=== PATIENT | female | born 1970 | race African-American/Black ===

== ENCOUNTER 2019-03-16 17:27 | Inpatient (IN) ==
[2019-03-16 18:04] LABS: BASO# 0.02 X1000 (0.0-0.2); BASO% 0.3 % (0.0-0.8); EOS# 0.07 X1000 (0.0-0.7); EOS% 0.9 % (0.0-10.0); HEMATOCRIT 39.2 % (37.0-47.0); HEMOGLOBIN 12.8 g/dL (12.0-16.0); IMM GRAN# 0.02 X1000 (0.0-0.04); IMM GRAN% 0.3 % (0.0-0.5); LYMPH# 2.71 X1000 (1.2-3.4); LYMPH% 36.3 % (20.5-51.1); MCH 27.8 PG (27-31); MCHC 32.7 g/dL (33-37); MCV 85.2 FL (81-99); MONO# 0.49 X1000 (0.11-0.59); MONO% 6.6 % (1.7-9.3); MPV 10.7 FL (7.4-10.4); NEUT# 4.15 X1000 (1.4-6.5); NEUT% 55.6 % (42.2-75.2); PLT 315 X1000 (130-400); RDW 12.8 % (11.5-14.5); WBC 7.46 X1000 (4.8-10.8)
--- NOTE | 2019-03-16 18:09 | EKG Report ---
Test Performed on : 03/16/2019 5:41:54 PM Test Reason : chest pain Blood Pressure : / mmHG Vent. Rate : 082 BPM Atrial Rate : 082 BPM P-R Int : 152 ms QRS Dur : 090 ms QT Int : 394 ms P-R-T Axes : 051 -04 020 degrees QTc Int : 460 ms Normal sinus rhythm. Possible Left atrial enlargement Nonspecific T wave abnormality Prolonged QT Abnormal ECG No previous ECGs available Unconfirmed Result
[2019-03-16 18:15] LABS: INR 0.86; PROTIME 12.5 Seconds (11.0-16.0)
[2019-03-16 18:16] LABS: PTT 27.1 Seconds (22.3-41.8)
[2019-03-16 18:28] LABS: AGAP 13; ALB/GLOB RATIO 1.4; ALKALINE PHOSPHATASE 140 U/L (32-104); BUN 4 mg/dL (8-22); CALCIUM 9.4 mg/dL (8.8-10.2); CHLORIDE 98 mmol/L (98-107); CK PROFILE 96 U/L (24-173); COSMO 279; CREATININE 0.6 mg/dL (0.5-0.9); ESTIMATED GFR > 60; GLUCOSE 282 mg/dL (70-104); GOT 90 U/L (10-30); GPT 37 U/L (10-36); POTASSIUM 3.8 mmol/L (3.5-5.1); SODIUM 136 mmol/L (136-145); TCO2 25 mmol/L (25-35); TOTAL BILIRUBIN 0.44 mg/dL (0.20-1.00); TOTAL PROTEIN 6.8 g/dL (6.3-8.3)
--- NOTE | 2019-03-16 18:30 | Diag Imaging Result Doc PS360 ---
EXAM: CHEST-2 VIEWS 03/16/2019 HISTORY: chest pain TECHNIQUE: PA and lateral chest COMMENT: There is no evidence of acute cardiac or pulmonary disease. There are no previous studies. IMPRESSION: No acute disease. Electronically signed by Jarad Weaver 03/16/2019 6:27 PM
--- NOTE | 2019-03-16 18:57 | ED EKG INTERP ---
This chart was entered by Emily Herron Scribe, acting as scribe for Surya Alicea MD. EKG Interpretation - EKG Time of EKG reading by physician:: 17:41 EKG Read and Signed by:: Surya Alicea EKG Interpretation (*Must complete 3 of following elements*): Abnormal Rate: 82 (possible left atiral enlargement ) Rhythm: NSR [place]: normal QRS: normal AL Interval: normal ST Wave: non-specific ST changes (nonspecific t wave abnormality) Comments: prolonged qt Attestation - Physician/ VIANNEY Attestation The physician spent face to face time with patient:: No Advanced Practice Provider documentation review:: Supervising physician onsite and consulted in the evaluation and care of this patient. The physician did not have a face to face encounter with the patient. This chart was documented by the indicated scribe, (Emily Herron Scribe) and accurately reflects the services I performed and decisions made by me, Surya Alicea MD, as attested by the provider's signature.
[2019-03-16] MEDS ORDERED: NITROGLYCERIN TOP ONE (20:29)
[2019-03-16] MEDS ORDERED: NITROGLYCERIN ONE (20:41)
--- NOTE | 2019-03-16 21:42 | PROVIDER DOCUMENTATION ---
This chart was entered by Emily Herron Scribe, acting as scribe for Estela Bach MD. HPI-Chest Pain - General Chief Complaint: Chest Pain Stated Complaint: CP Time Seen by Provider: 03/16/19 19:11 Source: patient Allergies/Adverse Reactions: Patient Allergies Allergy/AdvReac Type Severity Reaction Status Date / Time No Known Allergies Allergy Verified 10/26/18 15:59 Home Medications: Home Medication List Medication Instructions Recorded Confirmed Last Taken Type Amoxicillin/Pot Clavulanate 875 mg PO Q12HR #14 tab 10/26/18 Unknown Rx [Augmentin] Fluconazole [Diflucan] 150 mg PO DAILY #2 tab 10/26/18 Unknown Rx - History of Present Illness-CP Nature of Presenting Problem: pt is a 48 yobf c/o sudden acute central cp starting at 1515 when going to work. sts pain is constant but does wax and wane. Nothing makes it better or worse. 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 pt denies heavy lifting. pt has no hx cp, cardiac problems but has fam hx: son and mother have htn and father had triple bypass. pt blood pressure yest was 117/72 and in er its 164/106. She denies any SOB, nausea, vomiting, or diaphoresis. Location: reports: central Quality of Pain: reports: sharp Severity in ED: mild Onset/Duration: 4-6 hours ago Timing: still present Context/Activities at Onset: reports: light activity (walking at work) Modifying Factors: improves with: palpation Review of Systems - Adult - REVIEW OF SYSTEMS - ADULT Constitutional: reports: no symptoms reported Eyes: reports: no symptoms reported Ears, Nose, Mouth & Throat: reports: no symptoms reported Cardiovascular: reports: see HPI, chest pain (central). denies: orthopnea, poor circulation, syncope Respiratory: reports: no symptoms reported Gastrointestinal: reports: no symptoms reported Genitourinary: reports: no symptoms reported Musculoskeletal: reports: no symptoms reported Integumentary: reports: no symptoms reported Neurological: reports: no symptoms reported Psychiatric: reports: no symptoms reported Endocrine: reports: no symptoms reported Hematologic/Lymphatic: reports: no symptoms reported Allergic/Immunologic: reports: no symptoms reported All Other Systems: Reviewed and Negative Past History - Adult - PAST MEDICAL HISTORY-ADULT Review of Records: reports: Old Records Reviewed, Nursing Assessment Review, Medications Reviewed, Social history reviewed & non-contributory. Major Childhood Illnesses: reports: denies history Cardiovascular: reports: denies history Respiratory: reports: denies history Gastrointestinal: reports: denies history Obstetrical/Gynecological: reports: denies history Genitourinary: reports: denies history Musculoskeletal: reports: denies history Neurological: reports: denies history Psychiatric: reports: depression Endocrine/Immune: reports: denies history Other Conditions: reports: denies history - PRIOR SURGERIES/PROCEDURES Surgical/Procedure History: reports: none - IMMUNIZATION STATUS Childhood Immunizations: See Nurse Assessment Flu Vaccine: See Nurse Assessment - FAMILY HISTORY Family History: other (son and mother htn, father cabg) - SOCIAL HISTORY Smoking: non-smoker Substance Use: none/never Physical Exam-General - PHYSICAL EXAM-ADULT Initial Vital Signs Reviewed: Yes - CONSTITUTIONAL General Appearance: appears well, alert, no apparent distress, obese. negative: slow to respond, obtunded, combative - EYES Eyes: PERRL/EOMI, pink conjunctivae - HEAD, EARS, NOSE, MOUTH & THROAT HENMT: normocephalic/atraumatic, moist mucous membranes, normal ENT inspection - NECK Neck: non-tender, full range of motion, supple, normal inspection - RESPIRATORY Respiratory: chest non-tender, lungs clear, normal breath sounds - CARDIOVASCULAR Cardiovascular: normal peripheral pulses, regular rate, rhythm, no edema, no gallop, no JVD, no murmur - CHEST (BREASTS) Chest/Breast: no masses/lumps, tenderness (to palp central). negative: no tenderness, nipple discharge, mass/lump noted - GASTROINTESTINAL (ABDOMEN) Abdominal Exam: normal bowel sounds, non tender, soft - LYMPHATIC Lymphatic: no adenopathy - MUSCULOSKELETAL Back Exam: normal inspection, no CVA tenderness, no vertebral tenderness Extremity: normal range of motion, non-tender, normal inspection Peripheral Pulses: radial (R): 2+, radial (L): 2+ - SKIN Integumentary: normal color, normal turgor, warm/dry - NEUROLOGIC Neurologic: grossly normal, no motor/sensory deficits - PSYCHIATRIC Psych/Mental Status: normal mood/affect, normal thought content, normal thought process, oriented x 3 - HEART Score HEART Score: History: Moderately Suspicious HEART Score: ECG: Normal HEART Score: Age: 45-65 Years HEART Score: Risk Factors for Atherosclerotic Disease: 1 or 2 Risk Factors HEART Score: Troponin: < or = Normal Limit Total HEART Score:: 3 Progress - PLAN OF CARE/RESULTS Progress/Plan/Lab Results: Vital Signs - 8 hr 03/16/19 17:52 Temperature 98.6 F Pulse Rate 77 Respiratory Rate 16 Blood Pressure 142/91 O2 Sat by Pulse Oximetry 98 Laboratory Results - last 24 hr 03/16/19 03/16/19 03/16/19 17:48 17:48 17:48 WBC 7.46 RBC 4.60 Hgb 12.8 Hct 39.2 MCV 85.2 MCH 27.8 MCHC 32.7 L RDW Std Deviation 12.8 Plt Count 315 MPV 10.7 H Immature Gran % (Auto) 0.3 Neut % (Auto) 55.6 Lymph % (Auto) 36.3 Johnson % (Auto) 6.6 Eos % (Auto) 0.9 Baso % (Auto) 0.3 Immature Gran # (Auto) 0.02 Neut # (Auto) 4.15 Lymph # (Auto) 2.71 Johnson # (Auto) 0.49 Eos # (Auto) 0.07 Baso # (Auto) 0.02 PT INR PTT (Actin FS) Sodium 136 Potassium 3.8 Chloride 98 Carbon Dioxide 25 Anion Gap 13 BUN 4 L Creatinine 0.6 Estimated GFR/1.73 m2 > 60 BUN/Creatinine Ratio 7 Glucose 282 H Calculated Osmolality 279 Calcium 9.4 Total Bilirubin 0.44 AST 90 H ALT 37 H Alkaline Phosphatase 140 H Creatine Kinase 96 Troponin T Nml-N-Psfshnpqnid Pept 71 Total Protein 6.8 Albumin 4.0 Globulin 2.8 Albumin/Globulin Ratio 1.4 03/16/19 03/16/19 03/16/19 17:48 17:48 20:22 WBC RBC Hgb Hct MCV MCH MCHC RDW Std Deviation Plt Count MPV Immature Gran % (Auto) Neut % (Auto) Lymph % (Auto) Johnson % (Auto) Eos % (Auto) Baso % (Auto) Immature Gran # (Auto) Neut # (Auto) Lymph # (Auto) Johnson # (Auto) Eos # (Auto) Baso # (Auto) PT 12.5 INR 0.86 PTT (Actin FS) 27.1 Sodium Potassium Chloride Carbon Dioxide Anion Gap BUN Creatinine Estimated GFR/1.73 m2 BUN/Creatinine Ratio Glucose Calculated Osmolality Calcium Total Bilirubin AST ALT Alkaline Phosphatase Creatine Kinase 93 Troponin T < 0.010 Kxg-B-Hmjfwlvxixa Pept Total Protein Albumin Globulin Albumin/Globulin Ratio 03/16/19 20:22 WBC RBC Hgb Hct MCV MCH MCHC RDW Std Deviation Plt Count MPV Immature Gran % (Auto) Neut % (Auto) Lymph % (Auto) Johnson % (Auto) Eos % (Auto) Baso % (Auto) Immature Gran # (Auto) Neut # (Auto) Lymph # (Auto) Johnson # (Auto) Eos # (Auto) Baso # (Auto) PT INR PTT (Actin FS) Sodium Potassium Chloride Carbon Dioxide Anion Gap BUN Creatinine Estimated GFR/1.73 m2 BUN/Creatinine Ratio Glucose Calculated Osmolality Calcium Total Bilirubin AST ALT Alkaline Phosphatase Creatine Kinase Troponin T < 0.010 Dst-E-Uinrjflsmpy Pept Total Protein Albumin Globulin Albumin/Globulin Ratio Orders Category Date Time Status Cardiac Monitoring DIRECTED Care 03/16/19 17:54 Active Oxygen Therapy- ED Nursing DIRECTED Care 03/16/19 17:54 Active Saline Loc NOW Care 03/16/19 17:54 Active CHEST-2 VIEWS [RAD] Stat Exams 03/16/19 17:54 Completed CBC WITH ELECTRONIC DIFF [HEME] Stat Lab 03/16/19 17:48 Completed CK PROFILE [SP CHEM] Stat Lab 03/16/19 17:48 Completed CK PROFILE [SP CHEM] Stat Lab 03/16/19 20:22 Completed COMPREHENSIVE METABOLIC PANEL [CHEM] Stat Lab 03/16/19 17:48 Completed PRO B-NATRIURETIC PEPTIDE Stat Lab 03/16/19 17:48 Completed PROTIME WITH INR [COAG] Stat Lab 03/16/19 17:48 Completed PTT [COAG] Stat Lab 03/16/19 17:48 Completed TROPONIN T Stat Lab 03/16/19 17:48 Completed TROPONIN T Stat Lab 03/16/19 20:22 Completed Nitroglycerin Med 03/16/19 20:29 Discontinued 0.5 inch TOP NOW ONE Nitroglycerin Med 03/16/19 20:41 Discontinued 1 inch .ROUTE .STK-MED ONE CP/SOB/Palp >45 yrs of Age Stat Oth 03/16/19 17:54 Ordered EKG [EKG] Stat Ther 03/16/19 17:54 Draft EKG [EKG] Stat Ther 03/16/19 19:16 Ordered Spoke to patient about OBS admission vs DC home with outpatient stress test. Her CP did relieve with some nitropaste. 2 negative troponins and normal EKG. Spoke to Dr Barr about OBS admission for inpatient stress test and patient was accep zahra for admission. Further orders to be placed by hospitalist. Result Diagrams: 03/16/19 17:48 03/16/19 17:48 - XRAY 1 XRAY Study: Chest Impression: Normal, See EMR Report (EXAM: CHEST-2 VIEWS 03/16/2019 HISTORY: chest pain TECHNIQUE: PA and lateral chest COMMENT: There is no evidence of acute cardiac or pulmonary disease. There are no previous studies. IMPRESSION: No acute disease. Electronically signed by Jarad Weaver 03/16/2019 6:27 PM) Departure - Departure Date of Disposition Decision: 03/16/19 Time of Disposition Decision: 21:37 DIAGNOSIS: Chest pain Disposition: ADMITTED INPATIENT 09 Certified Medical Emergency: Emergent Condition: Stable Referrals and Follow-Ups: None,PCP [Primary Care Provider] - - Critical Care Note This patient required my direct & personal management of CC.: No Attestation - Physician/ VIANNEY Attestation Patient care was provided by Advanced Practice Provider:: No The physician spent face to face time with patient:: Yes Advanced Practice Provider documentation review:: Supervising physician onsite and consulted in the evaluation and care of this patient. The physician did have a face to face encounter with the patient. This chart was documented by the indicated scribe, (Emily Herron Scribe) and accurately reflects the services I performed and decisions made by me, Estela Bach MD, as attested by the provider's signature.
[2019-03-16] MEDS ORDERED: TYLENOL PO PRN (22:56)
[2019-03-16] MEDS ORDERED: ZOFRAN IV PRN (22:56)
--- NOTE | 2019-03-17 00:36 | HISTORY AND PHYSICAL ---
PRIMARY CARE PHYSICIAN: None. CHIEF COMPLAINT: Chest pain. HISTORY OF PRESENTING ILLNESS: A 48-year-old obese female without any significant past medical history, presented to the emergency department with a 1-day history of having chest pain. She described it as pressure-like and tightness, and stated that she was somewhat diaphoretic. She states the symptoms were worsening. Subsequently, she had come to the emergency department. In the ED she was evaluated and due to her presenting symptoms, it was thought that we will place her for observation for further evaluation management. At time of my examination, patient denied any headache, fever, chills, nausea, vomiting, diarrhea, hemoptysis, melena, weight changes, but complained chest pain. PAST MEDICAL HISTORY: None. PAST SURGICAL HISTORY: None. ALLERGIES: No known drug allergies. CURRENT MEDICATIONS: None. SOCIAL HISTORY: No history of smoking, alcohol or illicit drug use. FAMILY HISTORY: Positive for coronary disease father. REVIEW OF SYSTEMS: A 14 point review of system is as in HPI. Other systems negative. PHYSICAL EXAMINATION: GENERAL: Cooperative, friendly female. She is resting comfortably now. VITAL SIGNS: Temperature 98.6 degrees, pulse 77, respirations 16, blood pressure 142/91. HEENT: Atraumatic, normocephalic. Extraocular movements intact. PERRLA. NECK: No masses. CHEST: Clear to auscultation. CARDIOVASCULAR: Regular rate and rhythm. ABDOMEN: Soft, positive bowel sounds. EXTREMITIES: No edema. NEUROLOGIC: She is awake, alert, oriented x3. : No bladder distention. SKIN: Warm. LABORATORIES AND STUDIES: WBC 7.46, hemoglobin 12.8, hematocrit 39.2, platelets 315,000. Sodium 136, potassium 3.8, chloride 98, CO2 25, BUN is 4, creatinine 0.6, glucose 282. Troponin 0.010. ASSESSMENT: A 48-year-old female without significant past medical history, had presented to the emergency department with a 1-day history of chest pain. We will place the patient for observation for further evaluation and management. 1. Chest pain. PLAN: 1. We will admit patient to medical floor with telemetry. 2. Continue with cardiac workup. Check EKG, serial cardiac enzymes. Have patient continue on aspirin. We will use sublingual nitroglycerin p.r.n. chest pain. 3. We will consult Cardiology. 4. Put patient on DVT prophylaxis, SCDs. 5. We will continue to follow and reassess. Make further recommendation based on patient's clinical course. cc: Antonio Barr MD
[2019-03-17] MEDS: PRILOSEC PO SCH (06:31)
[2019-03-17 08:27] LABS: HEMATOCRIT 36.7 % (37.0-47.0); HEMOGLOBIN 11.9 g/dL (12.0-16.0); MCH 28.1 PG (27-31); MCHC 32.4 g/dL (33-37); MCV 86.8 FL (81-99); MPV 10.6 FL (7.4-10.4); RBC 4.23 XMIL (4.2-5.4); RDW 12.9 % (11.5-14.5); WBC 9.77 X1000 (4.8-10.8)
[2019-03-17] MEDS ORDERED: ASPIRIN PO SCH (09:00)
[2019-03-17 09:50] LABS: CHOLESTEROL 190 mg/dL (0-200); HDL 62 mg/dL (45-65); LDL 109 mg/dL; TRIGLYCERIDES 93 mg/dL (35-135); VLDL 19 mg/dL
[2019-03-17 14:17] LABS: HEMOGLOBIN A1C 12.6 % (4.8-6.0)
--- NOTE | 2019-03-17 14:23 | CONSULTATION ---
DATE OF CONSULTATION: 03/17/2019 IMPRESSION: 1. Atypical chest pain, suspect more likely noncardiac. 2. Obesity. RECOMMENDATIONS: 1. Screening stress testing reasonable. 2. Weight loss Recommended/discussed. HISTORY: This is a 48-year-old, -[place] female with a past history of obesity was admitted through the emergency room with chest pain. She has no previous cardiac problems. There is no history of hypertension, diabetes, or hypercholesterolemia. She is a nonsmoker. She relates that yesterday around 3:15 p.m., she started experiencing pain in the center of the chest which was sharp in character, extended to her back. Discomfort was persistent but tended to wax and wane for approximately 7 hours. She noted some tendency for movement of the torso to increase her chest discomfort. She came to the emergency room and relates chest discomfort improved with treatment in the emergency room. She has never had any previous cardiac problems or previous chest pain issues. She has not had any further chest discomfort. She is modestly active. She walks her dog 2 miles Saturday through Saturday without any chest discomfort or shortness of breath. PAST MEDICAL HISTORY: 1. Obesity. 2. Negative for hypertension, negative for diabetes, negative for hyperlipidemia. PAST SURGICAL HISTORY: None. ALLERGIES: She has no known drug allergies. MEDICATIONS: She was on no medications prior to admission. SOCIAL HISTORY: She works for [employer]. She does not smoke or use alcohol. FAMILY HISTORY: Negative for premature coronary artery disease. REVIEW OF SYSTEMS: Pulmonary: Negative. Gastrointestinal: Negative. Constitutional: Negative. Remainder of the review of systems is negative/noncontributory with 14 total systems reviewed. PHYSICAL EXAMINATION: General: This is an obese, adult, -[place] female in no distress. Vital Signs: Blood pressure 120/65, heart rate 92 and regular. Oxygen saturation 100% on room air. HEENT Examination: Extraocular movements appear intact. Mucous membranes are moist. Neck: Supple without jugular venous distention. There are no carotid bruits. Chest: Clear to auscultation. Cardiac Examination: Reveals a regular rate and rhythm without appreciable murmur or gallop. Abdomen: Soft, nontender. Bowel sounds are normal. Extremities: Without edema. Neurologic: Examination reveals her to be alert and fully oriented. Speech is fluent. She moves all 4 extremities equally well. Skin: Warm and dry. Psychiatric: Examination reveals mood to be appropriate. DIAGNOSTIC DATA: A 12 lead EKG demonstrates normal sinus rhythm. It is within normal limits. LABORATORY DATA: Includes white blood cell count 9.77, hematocrit 36.7, hemoglobin 11.9, platelet count 286,000. Initial troponin less than 0.01, followup troponin less than 0.01, third troponin less than 0.01, and fourth troponin less 0.01. Pro B-natriuretic peptide level is 71. Triglycerides 93, total cholesterol 190, LDL cholesterol 109, HDL cholesterol 62. cc: Julio Sears MD
--- NOTE | 2019-03-17 15:47 | Diag Imaging Result Document ---
PROCEDURE NAME: MYOCARDIAL PERF SCAN, STR/REST - 03/17/2019 EXERCISE CARDIOLITE STRESS TEST: PROCEDURE: The patient exercised on Anthony protocol for 7 minutes to a peak heart rate of 153. 89% predicted maximal heart rate achieved, 100% exercise capacity. There was no chest pain. Stress electrocardiogram was negative for ischemia. There was no dysrhythmias noted. 14.8 mCi of Cardiolite was injected for the rest phase; 46 mCi of Cardiolite was injected for the stress phase. Gated SPECT images were obtained in standard views. SUMMARY: Images revealed significant chest wall and diaphragmatic attenuation. Normal left ventricular cavity size. There is better tracer uptake on stress compared to rest. There is low- grade fixed defect in the left ventricular apex. This is likely to represent attenuation defect. Low probability of scar. There is no evidence of ischemia. Left ventricular ejection fraction by gated SPECT was 77%. CONCLUSIONS: 1. No chest pain. 2. Negative exercise stress electrocardiogram. 3. There were no dysrhythmias noted. 4. Myocardial perfusion images revealed no evidence of ischemia. 5. There is low-grade small-sized fixed defect in the left ventricular apex with normal wall motion. there is associated significant chest wall attenuation. This is likely to represent attenuation defect. 6. Left ventricular ejection fraction by gated SPECT was 77%. cc: MD Krysta Madrid MD
[2019-03-17] MEDS ORDERED: INSULIN PEN NEEDLES ONE (15:59)
[2019-03-17] MEDS ORDERED: HUMULIN R SUBQ SCH (16:00)
[2019-03-17] MEDS: NEURONTIN PO SCH (18:40)
--- NOTE | 2019-03-17 19:10 | PROGRESS NOTE ---
DATE: 03/17/2019 SUBJECTIVE: The patient denies any further shortness of breath or chest pain. She does complain of numbness and tingling in her feet that has been going on for several months. OBJECTIVE: Vital Signs: Temperature 98.3, blood pressure 131/72, heart rate 84, respirations 18, O2 saturation is 100% on room air. General: This is a morbidly obese female sitting in a chair in no acute distress. Heart: S1, S2 normal. Regular rate and rhythm. Lungs: Clear to auscultation bilaterally. Abdomen: Positive bowel sounds. Soft, nontender, nondistended. Extremities: No edema. No cyanosis. Neurologic: The patient is alert and oriented x4. LABS: Hemoglobin 11, hematocrit 36, platelets 286. Cholesterol 190, LDL 109. Hemoglobin A1c 12.6. AST 90, ALT 37. ASSESSMENT AND PLAN: 1. Chest pain. The patient's stress test was noted to be unremarkable. Also, her enzymes are negative. 2. Newly diagnosed diabetes mellitus type 2. The patient's hemoglobin A1c is markedly elevated at 12.6. We will start the patient on Levemir twice a day. We will also consult with the dietitian. The patient has been counseled about weight loss and proper diet. 3. Suspected diabetic neuropathy. We will start the patient on gabapentin. 4. Elevated liver function tests. We will order a hepatitis profile and abdominal ultrasound. 5. Dyslipidemia. The patient's LDL is 106. She would likely benefit from statin therapy since her LDL is not at goal. Also, weight loss was discussed with the patient. 6. Morbid obesity. Aware. 7. Hypertension. We will start the patient on low dose lisinopril. 8. Deep vein thrombosis prophylaxis. Will start the patient on Lovenox. cc: Krysta Isbell MD MTDD
[2019-03-17] MEDS ORDERED: LIPITOR PO SCH (21:00)
[2019-03-17 21:28] LABS: URINE SOURCE CLEAN CATCH
[2019-03-17 21:35] LABS: BILIRUBIN URINE SMALL (NEGATIVE); BLOOD URINE NEGATIVE (NEGATIVE); COLOR YELLOW; GLUCOSE URINE >1000 mg/dL (NEGATIVE); KETONE URINE NEGATIVE (NEGATIVE); LEUKOCYTES URINE NEGATIVE (NEGATIVE); NITRITE URINE NEGATIVE (NEGATIVE); PROTEIN URINE NEGATIVE (NEGATIVE); SP GRAVITY URINE 1.011; TURBIDITY URINE CLEAR (CLEAR); UROBILINOGEN URINE NORMAL (NORMAL)
[2019-03-17 21:37] LABS: UR EPITHELIAL CELLS <10 /HPF (<10); URINE BACTERIA NEGATIVE /HPF; URINE RBC <10 /HPF (<10); URINE WBC <10 /HPF (<10)
[2019-03-17 21:51] LABS: URINE CASTS NONE SEEN; URINE CRYSTALS NONE SEEN; URINE YEAST NONE SEEN
[2019-03-17] MEDS: LEVEMIR SUBQ SCH (22:16)
[2019-03-17] MEDS: LOVENOX SUBQ SCH (22:17)
[2019-03-17] MEDS: HUMULIN R SUBQ SCH (22:17)
--- NOTE | 2019-03-17 23:46 | ECHO REPORT ---
ORDER DATE: 03/17/2019 MEASUREMENTS: Septal thickness 1.2, left ventricular internal diameter in diastole 4.1, posterior wall thickness 1.2, left ventricular internal diameter in systole 2.7, aortic root 3.5, left atrium 3.3. SUMMARY: 1. Adequate quality study. 2. The aortic valve is trileaflet and opens normally on 2-dimensional images. Peak gradient across the aortic valve is less than 10 mmHg. Mitral, tricuspid and pulmonic valves are without evidence of structural abnormality, with trace mitral regurgitation, trace tricuspid regurgitation and trace pulmonic insufficiency. Estimated systolic PA pressure by Doppler is 40 mmHg, suggesting mild pulmonary hypertension. The aortic root is normal in size. 3. Normal left ventricular chamber size with mild concentric left ventricular hypertrophy is demonstrated on 2-dimensional images. Estimated left ventricular ejection fraction appears to be at least 60%. No regional wall motion abnormalities are evident. Left atrium, right atrium and right ventricle are normal in size with normal right ventricular systolic function. 4. No pericardial effusion. 5. Inferior vena cava not well demonstrated. CONCLUSIONS: 1. Mild pulmonary hypertension by Doppler. 2. Mild concentric left ventricular hypertrophy, with estimated left ventricular ejection fraction at least 60%. cc: MD Krysta Duque MD
[2019-03-18] MEDS: HUMULIN R SUBQ SCH ×5 (07:49→22:02)
--- NOTE | 2019-03-18 08:21 | Diag Imaging Result Doc PS360 ---
US ABDOMEN-COMPLETE - 03/18/2019 INDICATION: elevated LFTs COMPARISON: None FINDINGS: The liver is very fatty. No liver masses. No biliary dilation. Common bile duct measures 4 mm. Spleen size is normal. The spleen measures 11.1 x 10.4 x 5.3 cm. The gallbladder is extremely collapsed. No shadowing gallstones. The pancreas and both kidneys are normal. Aorta, IVC, and main portal vein are patent. IMPRESSION: 1. Fatty liver. 2. Very collapsed gallbladder. In a patient who is nothing by mouth, this may represent chronic cholecystitis. Electronically signed by Sheldon Bill 03/18/2019 8:19 AM
[2019-03-18] MEDS: PRINIVIL PO SCH (08:47)
[2019-03-18] MEDS: NEURONTIN PO SCH ×3 (08:47→16:22)
[2019-03-18] MEDS: ASPIRIN EC PO SCH (08:47)
[2019-03-18] MEDS: LEVEMIR SUBQ SCH ×2 (08:48→21:59)
--- NOTE | 2019-03-18 09:38 | Diag Imaging Result Doc PS360 ---
CHEST-PORTABLE - 03/18/2019 INDICATION: dyspnea COMPARISON: 03/16/2019 FINDINGS: The lungs are normally expanded and clear. Heart size and mediastinal contours are normal. No pneumothorax or pleural effusion. IMPRESSION: Negative exam. Electronically signed by Sheldon Bill 03/18/2019 9:36 AM
[2019-03-18 09:44] LABS: AGAP 12; BUN 4 mg/dL (8-22); CALCIUM 8.5 mg/dL (8.8-10.2); CHLORIDE 101 mmol/L (98-107); COSMO 271; CREATININE 0.5 mg/dL (0.5-0.9); ESTIMATED GFR > 60; GLUCOSE 205 mg/dL (70-104); POTASSIUM 3.8 mmol/L (3.5-5.1); SODIUM 134 mmol/L (136-145); TCO2 21 mmol/L (25-35)
[2019-03-18 09:45] LABS: CHOLESTEROL 180 mg/dL (0-200); HDL 60 mg/dL (45-65); LDL 94 mg/dL; TRIGLYCERIDES 132 mg/dL (35-135); VLDL 26 mg/dL
[2019-03-18 10:14] LABS: ALB/GLOB RATIO 0.9; ALBUMIN 3.6 g/dL (3.5-5.0); DIRECT BILIRUBIN 2.1 mg/dL (0.00-0.20); TOTAL BILIRUBIN 2.66 mg/dL (0.20-1.00); TOTAL PROTEIN 7.5 g/dL (6.3-8.3)
[2019-03-18 10:31] LABS: HEMATOCRIT 38.1 % (37.0-47.0); MCH 27.8 PG (27-31); MCHC 31.5 g/dL (33-37); MCV 88.2 FL (81-99); MPV 11.2 FL (7.4-10.4); RBC 4.32 XMIL (4.2-5.4); RDW 13.4 % (11.5-14.5); WBC 5.13 X1000 (4.8-10.8)
[2019-03-18] MEDS: ZOSYN 3.375 GM in NS 50 ML IV SCH ×3 (11:33→22:15)
[2019-03-18] MEDS: NS 1,000 ML IV SCH ×2 (11:33→11:54)
--- NOTE | 2019-03-18 13:44 | Diag Imaging Result Doc PS360 ---
CT ABD/PELVIS W/ORAL CONT ONLY - 03/18/2019 INDICATION: abdominal pain COMPARISON: None FINDINGS: The lung bases are clear and the heart size is normal. There is severe fatty change of the liver. The gallbladder is collapsed. No radiodense renal stones. No hydronephrosis or hydroureter. Other abdominal organs are normal. There is mild constipation. No bowel obstruction or inflammation. Urinary bladder, uterus, and rectum are normal. There are moderate degenerative changes of the spine. No acute or suspicious bony lesion. IMPRESSION: 1. Significant fatty liver. 2. Mild constipation. 3. Nonspecific collapsed gallbladder. This exam was performed using automated exposure control, adjustment of mA or kV according to patient size, and/or use of iterative reconstruction technique Electronically signed by Sheldon Bill 03/18/2019 1:41 PM
[2019-03-18 14:22] LABS: HEPATITIS PROFILE ACUTE SEE COMMENTS
--- NOTE | 2019-03-18 17:41 | PROGRESS NOTE ---
DATE: 03/18/2019 SUBJECTIVE: The patient states that she feels a lot better today. She denies having any nausea, vomiting, or abdominal pain at this time. OBJECTIVE: Vital Signs: Temperature 98.6 degrees, blood pressure 142/74, heart rate 69, respirations 20, O2 saturation is 100% on room air. General: This is a morbidly obese female, lying in bed in no acute distress. Heart: S1, S2 normal. Regular rate and rhythm. Lungs: Equal air entry bilaterally. No crackles. No rales. Abdomen: Positive bowel sounds. Soft. Positive for epigastric tenderness. Extremities: No edema no cyanosis no calf tenderness. Neurologic: The patient is alert and oriented x4. DIAGNOSTIC STUDIES: White blood cell count 5, hemoglobin 12, hematocrit 38, platelets 300,000. Sodium 134, potassium 3.8, chloride 101, CO2 of 21, BUN 4, creatinine 0.5, glucose 195, total bilirubin 2.6, direct bilirubin 2.1, AST 332, ALT 311, alkaline phosphatase 217. LDL 94, HDL 60. IMAGING PROCEDURE: Abdominal ultrasound reveals fatty liver. Collapsed gallbladder. Chest x-ray is negative. CT of the abdomen and pelvis with oral contrast reveals mild constipation. Collapsed gallbladder. Significant fatty liver disease. ASSESSMENT AND PLAN: 1. Atypical chest pain. The patient's stress test was negative. 2. Elevated liver function tests. The patient's abdominal ultrasound shows a collapsed gallbladder. The patient complains of epigastric pain. Will order a HIDA scan to be done tomorrow. We will also consult with General Surgery. The patient will likely need to be seen by GI as well. The hepatitis profile is negative. We will also start the patient on Zosyn since she has been having low grade fever every night at midnight. 3. Newly diagnosed diabetes mellitus type 2. We will continue on Levemir 20 units subcutaneous twice a day plus sliding scale insulin. 4. Diabetic neuropathy. Continue on gabapentin. 5. Hypertension. Continue on lisinopril. 6. Fatty liver disease. The patient has been counseled about weight loss and proper diet. 7. Morbid obesity. Aware. 8. Constipation. Will start laxative therapy. 9. Deep vein thrombosis prophylaxis. Continue on Lovenox. cc: Krysta Isbell MD [facility] HOSPITALWilma
--- NOTE | 2019-03-18 20:19 | PROGRESS NOTE ---
DATE: 03/18/2019 SUBJECTIVE: Patient denies chest discomfort or shortness of breath on room air. OBJECTIVE: Vital signs: Blood pressure 146/80, heart rate 79, oxygen saturation 100% on room air. Neck: There is no significant jugular venous distention. Chest: Clear to auscultation. Cardiac: Reveals a regular rate and rhythm without appreciable murmur or gallop. Abdomen: Is soft. There is some mild tenderness to palpation in the right upper quadrant. Bowel sounds are normal. Extremities: Are without edema. LABORATORY DATA: Includes a white blood cell count of 5.13, hematocrit 38.1, hemoglobin 12.0, platelet count 300,000. Sodium 134, potassium 3.8, chloride 101, carbon dioxide 21, BUN 4, creatinine 0.5, glucose 205. Bilirubin total 2.66, direct bilirubin 2.1. AST 332, ALT 311. Alkaline phosphatase 217. Echocardiography demonstrates mild concentric left hypertrophy with normal left ventricular ejection fraction. There is Doppler evidence of mild pulmonary hypertension. Myocardial perfusion study negative for evidence of inducible myocardial ischemia. Normal left ventricular ejection fraction demonstrated. IMPRESSION: 1. Atypical chest pain. Cardiac studies negative. Suspect chest discomfort not cardiac. Abdominal imaging studies suggest cholecystic possible cholecystitis and indeed. Cholestatic picture evident in laboratory studies. 2. Obesity. RECOMMENDATIONS: 1. Agree with plans to pursue a HIDA scan. 2. General surgery consultation. 3. The patient appears quite stable from a cardiovascular standpoint. I will plan on seeing her again on an as-needed basis. cc: Julio Sears MD
[2019-03-18] MEDS: LOVENOX SUBQ SCH (21:57)
[2019-03-18] MEDS: COLACE PO SCH (22:15)
[2019-03-18] MEDS: MIRALAX PO SCH (22:15)
--- NOTE | 2019-03-18 22:52 | GENERAL SURGERY CONSULTATION ---
DATE: 03/18/2019 HISTORY OF PRESENT ILLNESS: This is a female, 48-year-old, who at work developed some epigastric and chest pain. She is admitted for cardiac workup, which has overall been unrevealing. She had a CT scan that showed a contracted gallbladder. She has had ultrasound shows contracted gallbladder, but no stones and no inflammation. She says she has had no prior episodes. She does not think this is really exertional, but not food related. Bowel function has otherwise been normal. MEDICAL HISTORY: Obesity. Negative for hypertension and diabetes. SURGICAL HISTORY: None. SOCIAL HISTORY: Works at [employer]. No tobacco, alcohol or drugs. Her son is a nurse at [employer]. FAMILY HISTORY: Is reviewed, negative for cancer. REVIEW OF SYSTEMS: Ten point negative. PHYSICAL EXAMINATION: Vital Signs: Temperature is 98.9, pulse 79, blood pressure 146/80, oxygen 100%. General: She is alert. HEENT: No scleral icterus. No cervical masses. Cardiovascular: Normal rate. Pulmonary: No increased work of breathing. Abdomen: Soft, nontender, nondistended. Integument: Warm and dry without jaundice. Psychiatric: Appropriate affect. Neurologic: No gross deficits. Peripheral vascular: No lower edema. LABORATORY DATA: White count 5, hematocrit 35, creatinine 0.5, bilirubin is up to 2.66, AST 332, ALT 311, alkaline phosphatase 217. Troponins been negative. Hepatitis panel is nonreactive. ASSESSMENT AND PLAN: A 48-year-old female with fatty liver disease, contracted gallbladder, but no obvious stones, no biliary dilation. Her cardiac workup has been unrevealing. It is possible this is biliary colic in nature. The symptoms do sound consistent but we do not have a study that suggest this. I will order a HIDA scan. We will monitor her going forward. She may benefit from a cholecystectomy, but would also continue ongoing hepatitis workup. This could be an autoimmune process, possibly or some other more atypical form of liver dysfunction. cc: Surya Shepherd MD
[2019-03-19] MEDS: ZOSYN 3.375 GM in NS 50 ML IV SCH ×3 (04:40→18:17)
[2019-03-19] MEDS: NS 1,000 ML IV SCH ×2 (04:45→06:01)
[2019-03-19] MEDS: PRILOSEC PO SCH (06:00)
[2019-03-19 06:53] LABS: BASO# 0.02 X1000 (0.0-0.2); BASO% 0.5 % (0.0-0.8); EOS# 0.09 X1000 (0.0-0.7); EOS% 2.4 % (0.0-10.0); HEMATOCRIT 40.7 % (37.0-47.0); HEMOGLOBIN 12.9 g/dL (12.0-16.0); LYMPH# 1.22 X1000 (1.2-3.4); LYMPH% 32.4 % (20.5-51.1); MCH 27.2 PG (27-31); MCHC 31.7 g/dL (33-37); MCV 85.9 FL (81-99); MONO# 0.35 X1000 (0.11-0.59); MONO% 9.3 % (1.7-9.3); MPV 10.5 FL (7.4-10.4); NEUT# 2.09 X1000 (1.4-6.5); NEUT% 55.4 % (42.2-75.2); PLT 337 X1000 (130-400); RBC 4.74 XMIL (4.2-5.4); RDW 13.2 % (11.5-14.5); WBC 3.77 X1000 (4.8-10.8)
[2019-03-19 07:05] LABS: AGAP 15; ALB/GLOB RATIO 1.1; ALBUMIN 3.7 g/dL (3.5-5.0); ALKALINE PHOSPHATASE 240 U/L (32-104); BUN 3 mg/dL (8-22); CALCIUM 8.9 mg/dL (8.8-10.2); CHLORIDE 99 mmol/L (98-107); COSMO 269; CREATININE 0.5 mg/dL (0.5-0.9); ESTIMATED GFR > 60; GLUCOSE 179 mg/dL (70-104); GOT 215 U/L (10-30); GPT 275 U/L (10-36); POTASSIUM 3.6 mmol/L (3.5-5.1); SODIUM 134 mmol/L (136-145); TCO2 20 mmol/L (25-35); TOTAL BILIRUBIN 2.37 mg/dL (0.20-1.00); TOTAL PROTEIN 7.1 g/dL (6.3-8.3)
[2019-03-19] MEDS: HUMULIN R SUBQ SCH ×4 (07:15→21:46)
[2019-03-19 07:21] LABS: AMYLASE 40 U/L (20-200); LIPASE 24 U/L (13-60)
[2019-03-19] MEDS: PRINIVIL PO SCH (11:43)
[2019-03-19] MEDS: COLACE PO SCH ×2 (11:43→21:32)
[2019-03-19] MEDS: ASPIRIN EC PO SCH (11:43)
[2019-03-19] MEDS: MIRALAX PO SCH ×2 (11:44→21:33)
[2019-03-19] MEDS: LEVEMIR SUBQ SCH ×2 (11:44→21:46)
[2019-03-19] MEDS: NEURONTIN PO SCH ×3 (11:44→16:48)
--- NOTE | 2019-03-19 12:58 | Diag Imaging Result Doc PS360 ---
EXAM: HIDA SCAN W/ EJECTION FRACTION INDICATION: cholecystitis(chronic) TECHNIQUE: 5.3 mCi of technetium 99 Choletec was administered intravenously and images were obtained in usual fashion. COMPARISON: None. FINDINGS: There was normal immediate hepatocellular uptake after administration of the radiotracer. Radiotracer presents in the gallbladder lumen as well as small bowel activity was markedly delayed. Gallbladder activity was seen only after 130 minutes post administration. There is also likely a small amount of small bowel activity at 130 minutes. Before this, neither gallbladder or small bowel activity was identified. At 190 minutes, 8 ounces of liquid fatty meal was administered. The calculated gallbladder ejection fraction was 100%. However, at this point, there was still a significant amount of radiotracer that remained in the liver. IMPRESSION: Marked delay in gallbladder filling, which would be consistent with the history of chronic cholecystitis. Electronically signed by Kwaku Herron 03/19/2019 12:56 PM
--- NOTE | 2019-03-19 16:05 | PROGRESS NOTE ---
DATE: 03/19/2019 SUBJECTIVE: The patient states that she has no complaints at this time. She denies any nausea, vomiting, or abdominal pain at this time. OBJECTIVE: Vital Signs: Temperature 97.9 degrees, blood pressure 118/66, heart rate 83, respirations 18, O2 saturation 99% on room air. General: This is a middle-aged female sitting in bed in no acute distress. Head: Normocephalic, atraumatic. Eyes: Positive for scleral icterus. Heart: S1, S2 normal. Regular rate and rhythm. Lungs: Clear to auscultation bilaterally. No wheezing. No rales. No rhonchi. Abdomen: Positive bowel sounds. Soft, nontender, nondistended. Extremities: No edema, no cyanosis. Neurologic: The patient is alert and oriented x4. LABS: White blood cell count 3.7, hemoglobin 12, hematocrit 40, platelets 337. Sodium 134, potassium 3.6, chloride 99, CO2 20. BUN 3, creatinine 0.5, glucose 179, total bilirubin 2.3. AST 215, ALT 275, alkaline phosphatase 240, albumin 3.7, lipase 24. X-RAYS: HIDA scan shows marked delay in gallbladder filling. ASSESSMENT AND PLAN: 1. Possible chronic cholecystitis. The patient's liver function tests are slightly improved today. We will continue with intravenous fluids and antibiotics. We will await further recommendations from the general surgeon. 2. Atypical chest pain. Resolved. 3. Diabetes mellitus type 2. Continue on Levemir 20 units subcutaneous twice a day plus sliding scale insulin. 4. Diabetic neuropathy. Continue on gabapentin. 5. Hypertension. Controlled. Continue on lisinopril. 6. Fatty liver disease. We will consult with Gastroenterology. We will also order the chronic liver disease workup. 7. Morbid obesity. Aware. 8. Constipation. The patient reports that she had a bowel movement yesterday. 9. Deep vein thrombosis prophylaxis. Continue on Lovenox. cc: MD VIKRAM Harper
--- NOTE | 2019-03-19 20:14 | GENERAL SURGERY PROGRESS NOTE ---
DATE: 03/19/2019 SUBJECTIVE: Pain is better. She is tolerating a diet. No fevers. No tachycardia. OBJECTIVE: General: She is alert. Cardiovascular: Normal rate. Abdomen: Soft. Integument: Warm dry without jaundice. LABORATORY: White count is 3, hematocrit 40. Her bilirubin is 2.37. AST, ALT, and alkaline phosphatase are mildly elevated. Amylase and lipase normal. She had a HIDA scan that showed diminished uptake of the gallbladder, but flow in the small bowel. Ejection fraction was 100%. ASSESSMENT AND PLAN: A 48-year-old female with chronic cholecystitis, pain. She does have fatty liver as well constipation. Given her findings on imaging and HIDA scan, I recommended cholecystectomy. We have offered her as an outpatient or as an inpatient. She would like to proceed to avoid further episodes of this pain. We discussed risks of bleeding, infection, damage to surrounding structures, conversion to open, bile leak, and persistent symptoms. Her son is a nurse and he was on the phone on speaker while we discussed these matters. All questions were answered. We will keep her n.p.o. at midnight and have her on the schedule for laparoscopic cholecystectomy with cholangiogram tomorrow. cc: Suyra Shepherd MD
[2019-03-19] MEDS: LOVENOX SUBQ SCH (21:32)
[2019-03-19] MEDS: BAZA ANTIFUNGAL CREAM TOP SCH (21:37)
[2019-03-20] MEDS: ZOSYN 3.375 GM in NS 50 ML IV SCH ×6 (02:00→20:27)
[2019-03-20] MEDS: NS 1,000 ML IV SCH ×2 (06:25→15:34)
[2019-03-20] MEDS: PRILOSEC PO SCH (06:30)
[2019-03-20] MEDS: HUMULIN R SUBQ SCH ×4 (06:38→21:55)
[2019-03-20 06:47] LABS: HEMATOCRIT 38.1 % (37.0-47.0); HEMOGLOBIN 12.2 g/dL (12.0-16.0); MCH 27.7 PG (27-31); MCV 86.6 FL (81-99); MPV 10.2 FL (7.4-10.4); RBC 4.4 XMIL (4.2-5.4); RDW 13.1 % (11.5-14.5); WBC 3.93 X1000 (4.8-10.8)
[2019-03-20 07:17] LABS: AGAP 15; ALB/GLOB RATIO 0.9; ALBUMIN 3.3 g/dL (3.5-5.0); ALKALINE PHOSPHATASE 268 U/L (32-104); BUN 5 mg/dL (8-22); CALCIUM 9.6 mg/dL (8.8-10.2); CHLORIDE 100 mmol/L (98-107); COSMO 274; CREATININE 0.4 mg/dL (0.5-0.9); ESTIMATED GFR > 60; GLUCOSE 182 mg/dL (70-104); GOT 141 U/L (10-30); GPT 218 U/L (10-36); POTASSIUM 3.2 mmol/L (3.5-5.1); SODIUM 136 mmol/L (136-145); TCO2 21 mmol/L (25-35)
[2019-03-20] MEDS ORDERED: POTASSIUM CHLORIDE 60 MEQ in NS 500 ML IV ONE (07:42)
[2019-03-20] MEDS: LEVEMIR SUBQ SCH ×2 (09:26→20:28)
[2019-03-20] MEDS: BAZA ANTIFUNGAL CREAM TOP SCH (09:27)
[2019-03-20] MEDS ORDERED: FENTANYL ONE (09:29)
[2019-03-20] MEDS ORDERED: DIPRIVAN 1% ONE (09:29)
[2019-03-20] MEDS ORDERED: SODIUM CHLORIDE 0.9% 10 ML ONE (09:31)
[2019-03-20] MEDS ORDERED: NORCURON ONE (09:31)
[2019-03-20] MEDS ORDERED: XYLOCAINE-MPF 2% ONE (09:31)
[2019-03-20] MEDS ORDERED: QUELICIN (DOSE) ONE (09:31)
[2019-03-20] MEDS ORDERED: ROBINUL ONE ×2 (09:35→11:56)
[2019-03-20] MEDS: NEURONTIN PO SCH ×3 (09:48→17:54)
--- NOTE | 2019-03-20 10:57 | PROGRESS NOTE ---
DATE: 03/20/2019 SUBJECTIVE: The patient is resting comfortably. She is scheduled for surgery today. OBJECTIVE: Vital Signs: Temperature 98.9 degrees, blood pressure 147/74, heart rate 85, respirations 18, and O2 saturations 100% on room air. General: This is a morbidly obese female sitting at the edge of the bed in no acute distress. Heart: S1, S2 normal. Regular rate and rhythm. Lungs: Clear to auscultation bilaterally. Abdomen: Positive bowel sounds. Soft, nontender, and nondistended. Extremities: No edema. No cyanosis. Neurologic: The patient is alert and oriented x4. LABORATORY: White blood cell count 3.9, hemoglobin 12, hematocrit 38 and platelets 309,000. Sodium 136, potassium 3.2, chloride 100, CO2 21, BUN 5, creatinine 0.4, and glucose 182. Total bilirubin 2.2, AST 141, ALT 218. Alkaline phosphatase 268. ASSESSMENT AND PLAN: 1. Chronic cholecystitis. The patient is scheduled for a cholecystectomy today. 2. Atypical chest pain. Resolved. 3. Diabetes mellitus type 2. Continue on long-acting insulin plus sliding scale insulin. 4. Morbid obesity. Aware. 5. Diabetic neuropathy. Continue on gabapentin. 6. Hypertension. Continue on lisinopril. 7. Fatty liver disease. The patient will follow up with GI as outpatient. She has been counseled about weight loss. 8. Constipation. Improved. 9. Deep vein thrombosis prophylaxis. The patient's Lovenox was held due to the upcoming procedure today. cc: Krysta Isbell MD
[2019-03-20] MEDS ORDERED: SODIUM CHLORIDE 0.9% ONE (11:12)
[2019-03-20] MEDS ORDERED: LR 1,000 ML ONE (11:12)
[2019-03-20] MEDS ORDERED: SENSORCAINE-MPF 0.5%/EPI 1:200,000 ONE (11:12)
[2019-03-20] MEDS ORDERED: ZOFRAN ONE (11:51)
[2019-03-20] MEDS ORDERED: DECADRON ONE (11:51)
[2019-03-20] MEDS ORDERED: NEOSTIGMINE ONE (11:56)
[2019-03-20] MEDS ORDERED: NEO-SYNEPHRINE ONE (12:14)
[2019-03-20] MEDS ORDERED: GLUCAGON ONE (12:27)
--- NOTE | 2019-03-20 12:56 | Diag Imaging Result Doc PS360 ---
EXAM: OPERATIVE CHOLANGIOGRAM HISTORY: CHOLECYSTITIS TECHNIQUE: Intraoperative angiogram, single view COMPARISON: None. FINDINGS: Contrast fills the common bile duct. No stone or stricture identified. No emptying into the small bowel at the time of the film. Electronically signed by Abebe Lal 03/20/2019 12:53 PM
[2019-03-20] MEDS: DILAUDID ONE ×2 (13:25→13:35)
[2019-03-20] MEDS: COLACE PO SCH ×2 (13:47→20:26)
[2019-03-20] MEDS: ASPIRIN EC PO SCH (13:47)
[2019-03-20] MEDS: MIRALAX PO SCH ×2 (13:47→20:27)
[2019-03-20] MEDS: PRINIVIL PO SCH (13:49)
[2019-03-20] MEDS ORDERED: MORPHINE IV PRN (13:57)
--- NOTE | 2019-03-20 15:17 | Diag Imaging Result Doc PS360 ---
MRI ABDOMEN W/WO CONTRAST - 03/20/2019 INDICATION: ELEVATED LFT, RECENT CHOLECYSTECTOMY TECHNIQUE: COMPARISON: CT 03/18/2019 FINDINGS: There has been cholecystectomy. There is a drain in the gallbladder fossa. No mass or fluid collection. No biliary dilation. The liver, pancreas, spleen, kidneys, and adrenals enhance normally. Main pancreatic duct is normal. IMPRESSION: No acute disease or complication. Electronically signed by Sheldon Bill 03/20/2019 3:15 PM
[2019-03-20] MEDS: LOVENOX SUBQ SCH (20:27)
--- NOTE | 2019-03-20 20:31 | OPERATIVE NOTE ---
DATE: 03/20/2019 PREOPERATIVE DIAGNOSIS: Chronic cholecystitis. POSTOPERATIVE DIAGNOSIS: Chronic cholecystitis, possible distal biliary obstruction. PROCEDURE PERFORMED: Laparoscopic cholecystectomy with cholangiogram. ESTIMATED BLOOD LOSS: 10 mL. SPECIMENS: Gallbladder. ANESTHESIA: General. INDICATION: This is a 48-year-old female who presented with colicky epigastric abdominal pain radiating to chest. She had a cardiac workup that was unrevealing. HIDA scan suggested chronic cholecystitis as well as CT scan and ultrasound. There were LFTs noted, elevated bilirubin, AST, ALT, and alkaline phosphatase, but she was not grossly jaundiced with no evidence of cholangitis. OPERATIVE FINDINGS: Chronically inflamed contracted gallbladder. No obvious stones. INTERPRETATION: Intraoperative cholangiogram showed a moderate length cystic duct with flow of contrast into a normal caliber common bile duct but which appeared to taper down distally with no flow into the small intestine. Intrahepatic flow appeared normal. OPERATIVE NOTE: Risks, benefits and alternatives were discussed. Patient consented to the procedure. She was seen preoperatively, and the surgical site was confirmed. Was taken to the operating room and placed in supine position. General anesthesia was induced without complication. Bony prominences padded and prepped with chlorhexidine solution, draped in usual fashion. After time-out, a supraumbilical incision was made, carried down to the fascia, incised and the abdomen was entered in open and controlled fashion. A 12 mm Nadir trocar was placed. The abdomen was insufflated to 15 mmHg. A 5 mm trocar was placed in the epigastric, one in midclavicular line, one more laterally. The gallbladder was grasped, retracted cephalad. There were omental adhesions we took down. We incised the peritoneum, exposing the infundibulum and the cystic duct. We dissected this out widely. The cystic artery coursed through this. We were able to establish our critical view. The peritoneum was quite thickened and inflamed. After confirming our critical view, we placed a clip on the gallbladder side and made a ductotomy, performed cholangiogram with above findings. After satisfactory cholangiogram, we triply clipped the duct, removed it and removed the gallbladder from the gallbladder fossa. There were 2 entering veins into the gallbladder that we doubly clipped. The liver was somewhat fatty and enlarged. We placed it in an EndoCatch bag, noted hemostasis. There was no bile leakage, no spillage of stones. We copiously irrigated. Good closure of cystic duct. No bleeding. A Robe drain was placed, given the possible distal obstruction. We did attempt to administer glucagon with no passage of contrast distally. After placing a Robe drain, the gallbladder fossa was brought out through the lateral port and secured with 2-0 nylon. Desufflated the abdomen after removing trocars, brought the gallbladder out through umbilical incision. Closed the fascia with interrupted 0 Vicryl sutures, skin was closed with 4-0 Monocryl in subcuticular fashion. Dermabond was applied. Counts correct. She has awoken and transferred to recovery. I spoke with the family. I have consulted Dr. Sandoval for consideration of ERCP. Most likely will start MRCP first and go from there. cc: Surya Shepherd MD
[2019-03-21] MEDS: ZOSYN 3.375 GM in NS 50 ML IV SCH ×5 (02:41→21:13)
[2019-03-21] MEDS: NS 1,000 ML IV SCH (02:41)
[2019-03-21] MEDS: PRILOSEC PO SCH (06:33)
[2019-03-21 06:46] LABS: HEMATOCRIT 36.8 % (37.0-47.0); HEMOGLOBIN 11.9 g/dL (12.0-16.0); MCH 27.9 PG (27-31); MCHC 32.3 g/dL (33-37); MCV 86.4 FL (81-99); RBC 4.26 XMIL (4.2-5.4); RDW 13.3 % (11.5-14.5); WBC 6.81 X1000 (4.8-10.8)
[2019-03-21 07:34] LABS: AGAP 12; ALB/GLOB RATIO 1.1; ALBUMIN 3.3 g/dL (3.5-5.0); ALKALINE PHOSPHATASE 309 U/L (32-104); BUN 4 mg/dL (8-22); CALCIUM 8.1 mg/dL (8.8-10.2); CHLORIDE 102 mmol/L (98-107); COSMO 268; CREATININE 0.5 mg/dL (0.5-0.9); ESTIMATED GFR > 60; GLUCOSE 84 mg/dL (70-104); GOT 213 U/L (10-30); GPT 236 U/L (10-36); POTASSIUM 3.4 mmol/L (3.5-5.1); SODIUM 136 mmol/L (136-145); TCO2 22 mmol/L (25-35); TOTAL PROTEIN 6.4 g/dL (6.3-8.3)
[2019-03-21] MEDS ORDERED: KLOR-CON PO ONE (07:37)
[2019-03-21] MEDS: MIRALAX PO SCH ×3 (08:36→21:17)
[2019-03-21] MEDS: PRINIVIL PO SCH (08:37)
[2019-03-21] MEDS: ASPIRIN EC PO SCH (08:37)
[2019-03-21] MEDS: NEURONTIN PO SCH ×3 (08:37→18:04)
[2019-03-21] MEDS: COLACE PO SCH ×2 (08:37→21:13)
[2019-03-21] MEDS: LEVEMIR SUBQ SCH ×2 (08:38→21:24)
--- NOTE | 2019-03-21 10:59 | PROGRESS NOTE ---
DATE: 03/21/2019 SUBJECTIVE: Ms. Gonzalez is a 49-year-old black female who underwent a laparoscopic cholecystectomy per Dr. Shepherd 03/20/2019. He did do an intraoperative cholangiogram at the time of surgery which showed no dye filling the duodenum. A drain was placed at the time of surgery. She went to the recovery room and then to the floor. She has had an abdominal MRI which was read as normal. There was no evidence of biliary dilatation. She has only had serosanguineous fluid out of the drain but her liver function tests have increased since yesterday. Clinically, she states she feels fine and today is her birthday. Her incisions are intact. Her abdomen is soft and clinically, she does not have jaundice. OBJECTIVE: Her heart rate is 68, blood pressure 134/71, O2 saturation 98%. She is afebrile. Her white blood cell count is normal at 6.8, hematocrit is 37%. BUN and creatinine are 4 and 0.5. Her total bilirubin has gone from 2.2 to 2.5. Her AST and ALT have slightly increased. Her alkaline phosphatase has gone from 268 to 309. PLAN: Despite her feeling well, we will keep her hospitalized and allow GI medicine to evaluate her. She is on a clear liquid diet and we will advance that to a regular diet. cc: Yoli Castro MD
[2019-03-21] MEDS: HUMULIN R SUBQ SCH ×3 (13:55→21:25)
[2019-03-21] MEDS: BAZA ANTIFUNGAL CREAM TOP SCH ×3 (15:40→21:49)
--- NOTE | 2019-03-21 17:32 | PROGRESS NOTE ---
DATE: 03/21/2019 SUBJECTIVE: The patient is resting comfortably in bed. No acute events noted overnight. She complains of some soreness in her abdomen. She denies any nausea or vomiting. OBJECTIVE: Vital Signs: Temperature 98.5 degrees, blood pressure 146/73, heart rate 64, respirations 20, O2 saturation 98% on room air. General: This is an elderly female sitting in bed in no acute distress. Heart: S1, S2 normal. Regular rate and rhythm. Lungs: Clear to auscultation bilaterally. Abdomen: Positive bowel sounds. Soft, nontender, nondistended. Extremities: No edema, no cyanosis. Neurologic: The patient is alert and oriented x3. LABS: Hemoglobin 11, hematocrit 36, platelets 344. Sodium 136, potassium 3.4, chloride 102 CO2 22, BUN 4, creatinine 0.5, glucose 113, total bilirubin 2.5, direct bilirubin 1.8, AST 213, ALT 236, alkaline phosphatase 309, albumin 3.3. ASSESSMENT AND PLAN: 1. Status post laparoscopic cholecystectomy secondary to chronic cholecystitis. Management as per general surgeon. 2. Distal biliary obstruction. The patient is being followed by GI for possible endoscopic retrograde cholangiopancreatography. 3. Diabetes mellitus type 2. Continue on Levemir and sliding scale insulin. 4. Fatty liver disease. Aware. 5. Diabetic neuropathy. Continue on gabapentin. 6. Atypical chest pain. Resolved. 7. Deep vein thrombosis prophylaxis. Continue on Lovenox. cc: Krysta Isbell MD
[2019-03-21] MEDS: LOVENOX SUBQ SCH (21:13)
[2019-03-22] MEDS: HUMULIN R SUBQ SCH ×5 (01:53→22:19)
[2019-03-22] MEDS: ZOSYN 3.375 GM in NS 50 ML IV SCH ×4 (02:39→22:16)
[2019-03-22] MEDS: PRILOSEC PO SCH (06:35)
[2019-03-22 06:42] LABS: AGAP 7; BUN 3 mg/dL (8-22); CALCIUM 8.4 mg/dL (8.8-10.2); CHLORIDE 105 mmol/L (98-107); COSMO 275; CREATININE 0.5 mg/dL (0.5-0.9); ESTIMATED GFR > 60; GLUCOSE 81 mg/dL (70-104); POTASSIUM 3.5 mmol/L (3.5-5.1); SODIUM 140 mmol/L (136-145); TCO2 28 mmol/L (25-35)
[2019-03-22 07:02] LABS: ALB/GLOB RATIO 1.2; ALBUMIN 3.2 g/dL (3.5-5.0); DIRECT BILIRUBIN 1.8 mg/dL (0.00-0.20); TOTAL BILIRUBIN 2.23 mg/dL (0.20-1.00); TOTAL PROTEIN 5.8 g/dL (6.3-8.3)
--- NOTE | 2019-03-22 09:04 | PROGRESS NOTE ---
DATE: 03/22/2019 SUBJECTIVE: Ms. Gonzalez is status post laparoscopic cholecystectomy with intraoperative cholangiogram. There was no flow of the dye into the duodenum at the time of the cholangiogram. She has had an MRI ERCP which suggested no obstruction of the common duct, but her liver function tests. Remain elevated. Yesterday was her birthday. Today she feels well. Her drain has no bile within it. It is just serosanguineous fluid. OBJECTIVE: Vital Signs: Her heart rate is 65, blood pressure 135/74, O2 saturation is 100%. She is afebrile. LABORATORY DATA: Her electrolytes are within normal limits. Her total bilirubin went from 2.5 to 2.2. Her liver function tests have decreased but her alkaline phosphatase has gone from 309 to 338. PLAN: She is on a diabetic diet. She has been good about moving around. I will leave the CATRACHO drain in place. Will wait for any decision from GI Medicine and follow her liver function tests. cc: Yoli Castro MD
[2019-03-22] MEDS: LEVEMIR SUBQ SCH ×2 (09:15→22:17)
[2019-03-22] MEDS: MIRALAX PO SCH ×2 (09:15→22:15)
[2019-03-22] MEDS: ASPIRIN EC PO SCH (09:15)
[2019-03-22] MEDS: NEURONTIN PO SCH ×3 (09:15→21:30)
[2019-03-22] MEDS: PRINIVIL PO SCH (09:15)
[2019-03-22] MEDS: COLACE PO SCH ×2 (09:15→22:18)
--- NOTE | 2019-03-22 10:23 | GASTROENTEROLOGY CONSULTATION ---
DATE: 03/22/2019 CONSULTING PHYSICIAN: Dr. Maxim Shepherd. REASON FOR CONSULT: Abnormal intraoperative cholangiogram. HISTORY: This is a 48-year-old, female with no history of major medical problem, admitted to hospital with atypical chest pain and epigastric pain. After ruling out cardiac etiology, she had CT scan of the abdomen done which showed contracted gallbladder, subsequently confirmed by ultrasound of the abdomen. There was no evidence of common bile duct dilation or any filling defect in the common bile duct. Surgery was consulted. Dr. Shepherd proceed with a HIDA scan. HIDA scan did not light up the gallbladder but there was some delayed activity in the small bowel with possibility of chronic cholecystitis. She underwent laparoscopic cholecystectomy. She did have abnormal looking gallbladder. During cholecystectomy, she also had intraoperative cholangiogram. The intraoperative cholangiogram did not show any evidence of filling defects in the common bile duct. Common bile duct size was normal. The contrast was not flowing into the duodenum readily. During all of this, she had shown elevated LFT. On admission, her LFTs were slightly elevated, but during admission, it has gone up. Her bilirubin has risen from 0.44 to 2.20 on the day of her examination, and her AST which on admission was 90, has gone up to 141. Her ALT on admission was 37, it had gone up to 218, and her alkaline phosphatase, which on admission was 140, has gone up to 268. When I saw her, she was sitting up in the bed. She had returned from surgery and she was sitting up in the chair. She was hungry and still NPO and wanted to eat. She did not complain of any unusual abdominal pain, nausea, vomiting. She tells me she feels better. PHYSICAL EXAMINATION: Vital Signs: Temperature was 98 degrees Fahrenheit, pulse 79 per minute, breathing at 18, blood pressure was 148/78. HEENT: Head is atraumatic, normocephalic. Eyes: Conjunctivae is normal. Sclerae anicteric. Nares are patent. No discharge. Mouth: Buccal mucosa is moist. Throat is normal. Neck: Neck is supple. No lymphadenopathy, thyromegaly. Chest: Clear to auscultate. Heart: Audible. No murmur. Abdomen: Obese, postsurgical. Demetrius-Guillen drain in place. Appropriately tender. Otherwise abdomen is soft. Bowel sounds are audible. Extremities: No pedal edema noted. LABORATORY DATA: Reviewed. IMAGING STUDIES: CT scan, ultrasound of the abdomen and HIDA scan reports were seen. Intraoperative cholangiogram also reviewed. IMPRESSION: A 49-year-old white female who has presented with atypical chest pain. She had gallbladder. She underwent uneventful cholecystectomy, did well, but intraoperative cholangiogram showed the contrast did not go into the small bowel. There was some narrowing of the distal end of the common bile duct. Interestingly, her bilirubin on admission was normal. Slight elevation AST, ALT was noted, which has risen during her admission. She does have underlying fatty liver disease and she had may have sustained some injury to her liver, could be drug induced liver injury resulting in her elevated LFTs. I doubt that the into the non-flowing of the contrast into the duodenum is secondary to any stricture. She had an MRI of the abdomen, again did not show any evidence of filling defects and common bile duct size was normal too. Before proceeding with ERCP, I would wait and recheck her LFTs and see if that goes down to normal, and depending on her progress, further plans will be made. However I have discussed the procedure, risks, benefits, and alternatives with the patient as well as her son who was present at the bedside. I explained to them the risks of, but not limited to bleeding, perforation, aspiration, pneumonia, and pancreatitis, and the son and the patient agreed to wait and see how her LFTs respond from here on. Again depending on the progress, further plans made. cc: Gonzales Sandoval MD
[2019-03-22] MEDS: BAZA ANTIFUNGAL CREAM TOP SCH ×2 (12:17→21:30)
--- NOTE | 2019-03-22 16:56 | PROGRESS NOTE ---
DATE: 03/22/2019 SUBJECTIVE: The patient is resting comfortably in bed. She denies having any abdominal pain, nausea, vomiting, or diarrhea. She is tolerating her diet without any difficulty. OBJECTIVE: Vital Signs: Temperature 97.3 degrees, blood pressure 147/72, heart rate 59, respirations 20, O2 saturation is 98% on room air. General: This is a morbidly obese female sitting up in bed, in no acute distress. Heart: S1, S2 normal. Regular rate and rhythm. Lungs: Equal air entry bilaterally. No crackles. No rales. Abdomen: Positive bowel sounds. Soft, nontender, nondistended. Extremities: No edema. No cyanosis. Neurologic: The patient is alert and oriented x4. LABS: Sodium 140, potassium 3.5, chloride 105, CO2 28, BUN 3, creatinine 0.5, glucose 81, total bilirubin 2.2, direct bilirubin 1.8, AST 151, alkaline phosphatase 338, ALT 206, albumin 3.2. ASSESSMENT AND PLAN: 1. Status post laparoscopic cholecystectomy secondary to chronic cholecystitis. General Surgery is following. 2. Possible distal biliary obstruction. The patient is scheduled for an ERCP tomorrow. 3. Diabetes mellitus type 2. Continue on Levemir and sliding scale insulin. 4. Fatty liver disease. Aware. 5. Diabetic neuropathy. Continue on gabapentin. 6. Atypical chest pain. Resolved. 7. Deep vein thrombosis prophylaxis. We will hold the Lovenox. cc: Krysta Isbell MD MTDD
[2019-03-23] MEDS: ZOSYN 3.375 GM in NS 50 ML IV SCH ×3 (02:22→09:26)
[2019-03-23] MEDS: PRILOSEC PO SCH (06:38)
[2019-03-23] MEDS ORDERED: D50W SYRINGE IV PRN (06:53)
[2019-03-23] MEDS: HUMULIN R SUBQ SCH ×2 (06:57→10:49)
[2019-03-23 07:38] LABS: HEMOGLOBIN 12.6 g/dL (12.0-16.0); MCH 28.1 PG (27-31); MCHC 32.3 g/dL (33-37); MCV 87.1 FL (81-99); MPV 9.7 FL (7.4-10.4); RBC 4.48 XMIL (4.2-5.4); RDW 14.1 % (11.5-14.5); WBC 5.44 X1000 (4.8-10.8)
[2019-03-23] MEDS: BAZA ANTIFUNGAL CREAM TOP SCH (08:03)
[2019-03-23] MEDS: NEURONTIN PO SCH (08:04)
[2019-03-23] MEDS: LEVEMIR SUBQ SCH (08:04)
[2019-03-23] MEDS: PRINIVIL PO SCH (08:04)
[2019-03-23] MEDS: MIRALAX PO SCH (08:04)
[2019-03-23] MEDS: COLACE PO SCH (08:05)
[2019-03-23 08:06] LABS: AGAP 11; ALBUMIN 3.3 g/dL (3.5-5.0); ALKALINE PHOSPHATASE 347 U/L (32-104); BUN 5 mg/dL (8-22); CALCIUM 8.9 mg/dL (8.8-10.2); CHLORIDE 101 mmol/L (98-107); COSMO 270; CREATININE 0.5 mg/dL (0.5-0.9); ESTIMATED GFR > 60; GLUCOSE 84 mg/dL (70-104); GOT 112 U/L (10-30); GPT 175 U/L (10-36); MAGNESIUM 1.9 mg/dL (1.5-2.7); PHOSPHORUS 4.2 mg/dL (2.7-4.5); POTASSIUM 3.8 mmol/L (3.5-5.1); SODIUM 137 mmol/L (136-145); TCO2 25 mmol/L (25-35); TOTAL BILIRUBIN 1.59 mg/dL (0.20-1.00); TOTAL PROTEIN 6.7 g/dL (6.3-8.3)
[2019-03-23 11:20] VITALS: BP 132/67
--- NOTE | 2019-03-23 15:39 | GASTROENTEROLOGY PROGRESS NOTE ---
DATE: 03/23/2019 SUBJECTIVE: Patient is awake, alert, in no acute distress. She has family at the bedside. Her liver function tests have improved some today. We advanced her diet to a diabetic diet this morning for breakfast and she states she tolerated it well without problems. She still has Demetrius-Guillen drain in place with only small amount of output. MRCP done on 03/20/2019 showed recent cholecystectomy, drain in the gallbladder fossa. No mass or fluid collection. No biliary dilatation. Liver, pancreas, spleen, kidneys, and adrenals are normal. The main pancreatic duct was normal. Intraoperative cholangiogram had showed contrast filling the common bile duct. No stone or stricture but no emptying into the small bowel at the time of the film. Again patient currently denies complaints. OBJECTIVE: Vital Signs: Temperature 98.2 degrees, pulse 66, respirations 16, blood pressure 132/67. General: Patient is awake, alert, no acute distress. Abdomen: With laparoscopic incisions intact with Steri-Strips in place. Demetrius-Guillen drain to right quadrant with only small amount of fluid noted. LABORATORY: Hematology: WBC 5.44, hemoglobin 12.6, hematocrit 39.0, MCV 87.1, platelets 360,000. Chemistry: Sodium 137, potassium 3.8, chloride 101, CO2 25, BUN 5, creatinine 0.5, total bilirubin 1.59, AST 112, ALT 175, alkaline phosphatase 347. ASSESSMENT AND PLAN: 1. Status post laparoscopic cholecystectomy secondary to chronic cholecystitis. 2. Elevated liver function tests are improving. 3. Abdominal pain has improved. 4. Newly diagnosed diabetes. Continue current medication and management. PLAN: Patient has tolerated diabetic diet this morning. We will hold off proceeding with ERCP since her liver function tests are improving, and she is currently asymptomatic. I have recommended that if she is discharged to follow up with us as an outpatient in 2 weeks. Have liver function tests repeated prior to her office visit. Patient voices understanding. We will continue to follow during her hospital course and further plans will be made according to her progress. I have discussed this case with Dr. Sandoval. Dictated by RONALD Devine for Gonzales Sandoval MD cc: RONALD Evans MD [facility]
== END 2019-03-23 13:31 | disposition home or self-care (01) | DRG 419 ==
LOC: SUPCPDRO → 4N 17:27 → ED 17:27 → OBSVTOIN 22:18 → SUATTDRO 22:18 → UNDODISIN 03-22 17:13
PROVIDERS: ATTEND Internal Medicine
CPT/HCPCS: 71010; 71020; 71045; 71046; 74176; 74183; 74300; 76700; 78227; 78452; 80048; 80053; 80061; 80074; 80076; 81001; 81256; 82043; 82150; 82248; 82390; 82550; 82948; 83036; 83516; 83690; 83735; 83880; 84100; 84484; 85025; 85027; 85610; 85730; 86038; 86039; 87040; 88304; 93005; 93017; 93306; 94760; 94761; 99285; A9270; A9500; A9537; A9579; C1751; J0330; J1100; J1170; J1610; J1650; J2370; J2405; J2543; J3010; J3480; J7030; J7040; J7120; Q9966; Q9967; XXXXX